=== PATIENT | female | born 1995 | race Caucasian/White ===

== ENCOUNTER → 2018-01-28 13:06 | Outpatient (CLI) | payer OTHER, SELFPAY ==
--- NOTE | 2018-01-28 14:32 | DIET.PN ---
Met for an initial nutrition consultation. Pt reports her LDL level have been elevated for last 3 years and now cholesterol is also up. Is very concerned about this as she gets a lot of exercise and feels she eats well. Is currently training for a 1/2 marathon. Exercises most every day. Does not have a fam hx of heart dz, but dad does take medication for cholesterol lowering. LAB: LDL 141 Chol: 220 HDL wnl TG wnl Assessment: Fit appearing young woman. Does not appear overweight. Current diet appears well balanced nutritionally. Intervention:Provided ed on diet to lower blood lipids, including choosing lean meats, adding healthful fats, limiting refined carbs and processed foods. Plan: Gave written info on diet. Pt may call if she has further questions.
== END ==
PROVIDERS: Visit Provider Nurse Practitioner Family
DX: E78.00 Pure hypercholesterolemia, unspecified (principal)
CPT/HCPCS: 97802

== ENCOUNTER → 2019-03-03 13:07 | Outpatient (CLI) | payer OTHER, SELFPAY ==
--- NOTE | 2019-03-03 | DI.US.S_ITS ---
PROCEDURE: US PELVIC COMPLETE INDICATIONS: UNSPECIFIED DYSPAREUNIA TECHNIQUE: Real-time scanning was performed of the pelvic organs, with image documentation. Additional endovaginal scanning was necessary due to incomplete visualization of the adnexal and endometrial structures by transabdominal scanning. COMPARISON: None. FINDINGS: Transabdominal scanning: Limited scanning through the kidneys shows no hydronephrosis. No pathologic free abdominal or pelvic fluid. Endovaginal scanning: Uterus: Uterus is normal in size at 5.1 x 2.5 x 4.1 cm. The endometrium measures 5.1 mm in combined thickness. IUD in expected position. Possible complex endometrial fluid. Ovaries: Ovaries are bulky bilaterally measuring 4.0 x 1.8 x 1.8 cm on the right and 4.3 x 2.2 x 2.2 cm in length. There are multiple sub-5 mm bilateral follicular cysts. IMPRESSION: 1. Intrauterine device in expected position with mildly complex appearance of endometrium likely related to retained blood products. 2. Bulky ovaries with sub-5 mm bilateral multiple follicular cyst which can be associated with polycystic ovarian syndrome. Dictated by: Con HOLGUIN Interpreted: Brennen Hines MD on 03/03/2019 at 15:18 Approved by: Brennen Hines M.D. on 03/03/2019 at 20:35
== END ==
PROVIDERS: PCP Nurse Practitioner Family; Visit Provider Nurse Practitioner Family
DX: N94.10 Unspecified dyspareunia (principal); N83.02 Follicular cyst of left ovary; N83.01 Follicular cyst of right ovary; Z97.5 Presence of (intrauterine) contraceptive device
CPT/HCPCS: 76830; 76856

== ENCOUNTER → 2019-04-22 10:07 | Outpatient (CLI) | payer OTHER, SELFPAY ==
[2019-04-22 10:50] LABS: Influenza A - CEPHEID Flu A NEGATIVE (NEGATIVE); Influenza B - CEPHEID Flu B NEGATIVE (NEGATIVE)
== END ==
PROVIDERS: PCP Nurse Practitioner Family; Visit Provider Nurse Practitioner
DX: R68.89 Other general symptoms and signs (principal)
CPT/HCPCS: 87502

== ENCOUNTER → 2019-08-05 10:51 | Outpatient (CLI) | payer OTHER, SELFPAY ==
--- NOTE | 2019-08-05 | DI.US.S_ITS ---
PROCEDURE: US PELVIC COMPLETE INDICATIONS: IRREGULAR MENSES TECHNIQUE: Real-time scanning was performed of the pelvic organs, with image documentation. Additional endovaginal scanning was necessary due to incomplete visualization of the adnexal and endometrial structures by transabdominal scanning. COMPARISON: [facility], , US PELVIC COMPLETE, 03/03/2019, 13:32. FINDINGS: Transabdominal scanning: Limited scanning through the kidneys shows no hydronephrosis. No pathologic free abdominal or pelvic fluid. Endovaginal scanning: Uterus: Uterus is normal in size at 2.1 x 4.2 x 3.7 cm. The endometrium measures 4.0 mm in combined thickness. A centrally positioned IUD is seen within the endometrial canal and a small amount of fluid is present adjacent to the IUD within the endometrial space. Ovaries: The right ovary measures 2.4 x 2.5 x 3.8 cm and the left measures 1.8 x 1.8 x 2.6 cm. Multiple follicular cysts are seen bilaterally, consistent with polycystic ovarian syndrome. IMPRESSION: Centrally positioned IUD within the endometrial space in addition to a small amount of fluid immediately adjacent. The ovaries are not enlarged but contain multiple follicular cysts potentially a mild manifestation of polycystic ovarian syndrome. Dictated by: Brennen Hines M.D. on 08/05/2019 at 12:34 Approved by: Brennen Hines M.D. on 08/05/2019 at 12:37
== END ==
PROVIDERS: PCP Nurse Practitioner Family; Referring Provider Internal Medicine; Visit Provider Internal Medicine
DX: N92.6 Irregular menstruation, unspecified (principal); N83.02 Follicular cyst of left ovary; N83.01 Follicular cyst of right ovary; Z97.5 Presence of (intrauterine) contraceptive device
CPT/HCPCS: 76830; 76856

== ENCOUNTER → 2019-12-09 15:11 | Outpatient (CLI) | payer OTHER, SELFPAY ==
--- NOTE | 2019-12-09 | DI.US.S_ITS ---
PROCEDURE: US PELVIC COMPLETE INDICATIONS: Unspecified ovarian cyst, left side TECHNIQUE: Real-time scanning was performed of the pelvic organs, with image documentation. Additional endovaginal scanning was necessary due to incomplete visualization of the adnexal and endometrial structures by transabdominal scanning. COMPARISON: [facility], , US PELVIC COMPLETE, 08/05/2019, 11:07. FINDINGS: Transabdominal scanning: Limited scanning through the kidneys shows no hydronephrosis. No pathologic free abdominal or pelvic fluid. Endovaginal scanning: Uterus: Uterus is normal in size at 6.4 x 2.6 x 4.7 cm. There is a bicornuate uterus. The endometrium measures 5 mm in diameter. Ovaries: The right ovary measures 4.6 x 2.0 x 2.5 cm and the left ovary measures 4.3 x 2.2 x 2.3 cm. There are greater than 12 follicular cysts within the bilateral ovaries. IMPRESSION: 1. Bicornuate uterus. 2. Greater than 12 ovarian follicles bilaterally. Findings meet the [place] definition of polycystic ovaries. In the absence of ovulatory dysfunction or clinically/biochemically diagnosed hyperandrogenism, findings are non specific and do not indicate the presence of polycystic ovarian syndrome. Dictated by: Hayley Stevens M.D. on 12/09/2019 at 16:39 Approved by: Hayley Stevens M.D. on 12/09/2019 at 16:41
== END ==
PROVIDERS: PCP Internal Medicine; Referring Provider Internal Medicine; Visit Provider Internal Medicine
DX: Q51.3 Bicornate uterus (principal); E28.2 Polycystic ovarian syndrome
CPT/HCPCS: 76830; 76856